=== PATIENT | male | born 1960 | race Caucasian/White ===

== ENCOUNTER → 2018-08-17 10:22 | Outpatient (CLI) | payer SELFPAY ==
--- NOTE | 2018-08-17 10:27 | RAD_ITS ---
STUDY: X-RAY - LUMBAR SPINE REASON FOR EXAM: Male, 58 years old. Back pain TECHNIQUE: 4 view(s) of the lumbar spine were obtained. COMPARISON: None FINDINGS: Normal lumbar lordosis. There is no substantial scoliosis. There is a normal alignment of the vertebrae. Normal vertebral bodies and endplates. There is narrowing of the L5-S1 disc space with mild sclerosis of the adjacent endplates. The soft tissue structures are unremarkable. RAD/L/S Spine Min 4 Views IMPRESSION: Narrowing of the L5-S1 disc space with sclerosis of the adjacent endplates. Electronically Signed: Haile Arthur MD at 22:40 EST , Service support ,
== END ==
PROVIDERS: Family Provider Family Medicine; PCP Family Medicine; Referring Provider Neurological Surgery; Visit Provider Neurological Surgery
DX: M54.9 Dorsalgia, unspecified (principal)
CPT/HCPCS: 72110

== ENCOUNTER → 2021-04-15 15:55 | Outpatient (CLI) | payer OTHER, SELFPAY ==
--- NOTE | 2021-04-15 16:08 | MRI_ITS ---
EXAM DESCRIPTION: MRI of the head CLINICAL HISTORY: 61 years Male, worst foster of life COMPARISON: None. TECHNIQUE: An MRI was performed utilizing axial diffusion and ADC map images followed by axial T2 and FLAIR and gradient echo images followed by sagittal and axial T1 weighted images. Normal and T2-weighted images were obtained through the head along with axial and coronal postcontrast T1-weighted images of the head FINDINGS: The diffusion weighted axial images and ADC map images of the head show no evidence of restricted diffusion. The karen, medulla and midbrain and cerebellum appear to be normal. The ventricles and sulci are normal in size and shape. The cerebral hemispheres show a nonspecific focus of increased signal in the white matter of the left frontal lobeThe basal ganglia appear to be normal. No enhancing masses or lesions are seen. The gradient echo axial images are normal. No evidence of a Chiari I malformation is identified. The V4 segments of the vertebral artery, the basilar artery, the posterior cerebral arteries, the cavernous and supraclinoid carotid arteries, and the M1 segments of the middle cerebral arteries are all normal The orbits including the optic nerves and optic chiasm appear normal. The pituitary and pituitary infundibulum appear to be normal. The inner and outer tables of the skull are normal The frontal, ethmoid, maxillary, and sphenoid sinuses are normal. The mastoid air cells are normal. MRI/Brain W/WO Contrast IMPRESSION: Normal MRI of the head. Electronically Signed: Phil Calderon DO at 11:21 EDT Tel , Service support ,
== END ==
PROVIDERS: PCP Family Medicine; Referring Provider Family Medicine; Visit Provider Family Medicine
DX: R51.9 Headache, unspecified (principal)
CPT/HCPCS: 70553; A9575

== ENCOUNTER → 2022-01-29 | Outpatient (CLI) | payer OTHER, SELFPAY ==
[2022-01-29 09:52] LABS: Absolute Lymphocyte Count 1.19 X10^3/uL (0.83-4.51); Absolute Neutrophil Count 2.4 X10^3/uL (2.0-7.7); Basophil# 0.02 X10^3/uL; Basophil% 0.5 % (0-1); Eosinophil# 0.24 X10^3/uL; Eosinophils% 5.4 % (0-5); Hematocrit 50.2 % (40-54); Hemoglobin 16.5 g/dL (13.0-16.5); Lymphocyte # 1.19 X10^3/ul (0.83-4.51); Lymphocyte % 26.9 % (19-41); Mean Corp Hgb Conc 32.9 g/dL (32-36); Mean Corpuscular Hgb 29.2 pg (27.0-32.0); Mean Corpuscular Volume 88.7 fL (80-94); Mean Platelet Vol. 9.7 fl (6.2-12.0); Monocyte# 0.52 X10^3/uL; Monocyte% 11.8 % (0-10); NRBC Flagged by Analyzer 0 % (0-5); Neutrophil # 2.44 X10^3/uL (2.7-7.7); Neutrophil % 55.2 % (47-70); Platelet Count 179 K/mm3 (150-450); RBC Distribution Width CV 12.5 % (11.6-14.6); RBC Distribution Width SD 41.1 fl (35.1-43.9); Red Blood Count 5.66 M/mm3 (4.6-6.2); White Blood Count 4.4 K/mm3 (4.4-11.0)
[2022-01-29 10:17] LABS: AST(SGOT) 17 U/L (15-37); Alanine Aminotransfer ALT/SGPT 25 U/L (16-61); Alkaline Phosphatase 68 U/L (45-117); Cholesterol 256 mg/dL (200); Globulin 3.2 g/dL (2.2-4.2); High Density Lipoprotein 53 mg/dL; Protein, Total 7.2 g/dL (6.4-8.2); Triglycerides 106 mg/dL; Very Low Density Lipoprotein 21 mg/dL (5-40)
[2022-01-29 10:20] LABS: ALB/GLOB Ratio 1.3 RATIO (0.9-2.4); AST(SGOT) 16 U/L (15-37); Alanine Aminotransfer ALT/SGPT 25 U/L (16-61); Albumin, Serum 4.1 g/dL (3.2-5.0); Alkaline Phosphatase 63 U/L (45-117); Anion Gap 5 (5-15); BUN 18 mg/dL (7-18); BUN/Creat Ratio 15.7 RATIO (10-20); Calcium,Total 9.4 mg/dL (8.5-10.1); Chloride 103 mmol/L (98-107); Creatinine, Serum 1.15 mg/dL (0.70-1.30); EST Glomerular Filtration Rate 69 mL/min (>60); Est Glom Filt Rate - Afr Amer 84 mL/min (>60); Globulin 3.1 g/dL (2.2-4.2); Glucose 94 mg/dL (74-106); Potassium 3.9 mmol/L (3.5-5.1); Protein, Total 7.2 g/dL (6.4-8.2); Sodium Level 136 mmol/L (136-145)
== END | disposition home or self-care (01) ==
LOC: LAB 09:09
PROVIDERS: Registered Nurse; PCP Family Medicine; Visit Provider Internal Medicine Cardiovascular Disease
DX: I25.42 Coronary artery dissection (principal); I25.119 Atherosclerotic heart disease of native coronary artery with unspecified angina pectoris; I25.2 Old myocardial infarction; E78.00 Pure hypercholesterolemia, unspecified
CPT/HCPCS: 36415; 80053; 80061; 80076; 85025

== ENCOUNTER → 2022-02-23 | Outpatient (CLI) | payer OTHER, SELFPAY ==
--- NOTE | 2022-02-23 06:47 | ECHOD_ITS ---
Reason For Study: CAD/ASHD Procedure This was a 2D Doppler, Color Flow transthoracic echocardiogram. The exam was of adequate technical quality. Exam performed in department. Left Ventricle Normal LV size. Left ventricular systolic function is normal. The estimated ejection fraction is 55 %. No evidence for diastolic dysfunction. No regional wall motion abnormalities noted. Right Ventricle Normal RV size. Normal systolic function. Atria Normal left atrium. Normal right atrium. No doppler evidence for ASD. Mitral Valve There is no mitral annular calcification. Mild diffuse mitral valve thickening. Mild (1+) mitral valve insufficiency. Tricuspid Valve Normal tricuspid valve. Mild tricuspid valve insufficiency. Right ventricular systolic pressure estimated to be 19 mmHg. Aortic Valve Trisinus/trileaflet aortic valve. Normal aortic valve. Trivial aortic valve insufficiency. Pulmonic Valve The pulmonic valve is not well visualized. Moderate (2+) pulmonic valve insufficiency. Great Vessels The ascending aorta is mildly dilated. Pericardium/Pleural No pericardial effusion. MMode/2D Measurements & Calculations LVIDd: 4.4 cm IVSd: 0.80 cm Ao root diam: 3.1 cm LVIDs: 3.1 cm LVPWd: 0.83 cm RVDd: 3.5 cm FS: 30.2 % LAV(MOD-bp): 26.3 ml LVAd ap4: 26.9 cm2 SV(MOD-sp4): 43.3 ml LAV(MOD-bp) Indexed: 14.0 ml/m2 LVLd ap4: 8.1 cm LAV(MOD-sp2): 29.5 ml EDV(MOD-sp4): 73.5 ml LAV(MOD-sp4): 23.1 ml EDV(sp4-el): 76.0 ml LVAs ap4: 15.2 cm2 LVLs ap4: 6.5 cm ESV(MOD-sp4): 30.3 ml ESV(sp4-el): 30.3 ml EF(MOD-sp4): 58.8 % EF(sp4-el): 60.1 % SV(sp4-el): 45.7 ml LA A4 area: 11.4 cm2 LA dimension(2D): 3.2 cm RA A4 area: 11.3 cm2 Time Measurements MV dec time: 0.15 sec Doppler Measurements & Calculations MV E max issac: 76.1 cm/sec Lat Peak E' Issac: 9.9 cm/sec Med Peak E' Issac: 7.1 cm/sec MV A max issac: 72.9 cm/sec E/E' lat: 7.7 E/E' med: 10.7 MV E/A: 1.0 Ao V2 max: 115.1 cm/sec LV V1 max: 99.7 cm/sec PA V2 max: 83.3 cm/sec Ao max P.3 mmHg LV V1 max P.0 mmHg PI end-d issac: 66.1 cm/sec TR max issac: 200.8 cm/sec TR max P.2 mmHg PI dec slope: 232.1 cm/sec2 ECHO/Echo Complete Interpretation Summary Left ventricular systolic function is normal. The estimated ejection fraction is 55 %. Mild diffuse mitral valve thickening. Mild (1+) mitral valve insufficiency. Mild tricuspid valve insufficiency. Trivial aortic valve insufficiency. Moderate (2+) pulmonic valve insufficiency. The ascending aorta is mildly dilated. Right ventricular systolic pressure estimated to be 19 mmHg. No evidence for diastolic dysfunction. Ordering Physician: Brandon Hidalgo Referring Physician: CARL GARSIA Performed By: Vivi Ledezma RDCS
--- NOTE | 2022-02-23 08:48 | STRESSREP ---
Stress Test Report Date: 02-23-2022 Procedure: Exercise tolerance test/imaging study Indications: Chest pain; CAD; status post non-ST segment elevation [place] Consent: Per the patient Procedure: The patient exercised on a Jimmy protocol for 9 minutes completing Stage III achieving a peak heart rate of 150 bpm (93% predicted maximal heart rate) with a peak blood pressure 166/90 mmHg and a peak MET capacity of 10 METs. The baseline ECG demonstrated normal sinus rhythm. The peak exercise ECG demonstrated no obvious ECG changes. There were no cardiac dysrhythmias pretest, during exercise, or recovery. The functional capacity was considered good. There was no complaint of chest discomfort during exercise or recovery. The examination was discontinued secondary to dyspnea. Impression: 1. Technically adequate (percent predicted maximal heart rate greater than 85%) exercise tolerance test 2. Peak exercise ECG with no obvious ECG changes 3. There were no cardiac dysrhythmias pretest, during exercise, or recovery 4. Nuclear images pending Myocardial perfusion imaging study: Technique: The patient was injected with 10.9 mCi of technetium 99m Cardiolite and subsequently rest SPECT Cardiolite nuclear imaging was obtained in the horizontal long, vertical long, and short axis views. The patient exercised on a Jimmy protocol for 9 minutes completing Stage III achieving a peak heart rate of 150 bpm (93% predicted maximal heart rate) with a peak blood pressure 166/90 mmHg and a peak MET capacity of 10 METs. The patient was injected with 32.8 mCi of technetium 99m Cardiolite and subsequently stress SPECT Cardiolite nuclear imaging was obtained in the horizontal long, vertical long, and short axis views. A gated Cardiolite study at peak stress was obtained. Interpretation: Rest and stress SPECT Cardiolite nuclear imaging status post realignment, normalization, and attenuation correction, demonstrates the appearance of body motion during image acquisition and otherwise relative uniform tracer uptake and myocardial perfusion appearing within normal limits. There are no myocardial perfusion deficits appreciated on the stress polar map images. There is end systolic thickening and brightening. The gated Cardiolite study demonstrates myocardial thickening and inward wall motion. The reported LVEF is 68%. Impression: 1. Rest and stress SPECT Cardiolite nuclear imaging demonstrate the appearance of body motion during image acquisition and otherwise relative uniform tracer uptake and myocardial perfusion appearing within normal limits. 2. The gated Cardiolite study reports an LVEF of 68%. This note was generated with [facility] software. It may contain incorrect words, spelling, and punctuation that were not noted in checking the note before signing.
== END | disposition home or self-care (01) ==
PROVIDERS: PCP Family Medicine; Referring Provider Internal Medicine Cardiovascular Disease; Visit Provider Internal Medicine Cardiovascular Disease
DX: I25.119 Atherosclerotic heart disease of native coronary artery with unspecified angina pectoris (principal); I25.2 Old myocardial infarction; E78.00 Pure hypercholesterolemia, unspecified
CPT/HCPCS: 78452; 93017; 93306; A9500; A4216

== ENCOUNTER → 2022-09-09 | Outpatient (CLI) | payer OTHER, SELFPAY ==
[2022-09-09 17:51] LABS: Absolute Lymphocyte Count 2.04 X10^3/uL (0.83-4.51); Basophil# 0.02 X10^3/uL; Basophil% 0.3 % (0-1); Eosinophil# 0.39 X10^3/uL; Eosinophils% 6.3 % (0-5); Hematocrit 48.5 % (40-54); Hemoglobin 15.9 g/dL (13.0-16.5); Lymphocyte # 2.04 X10^3/ul (0.83-4.51); Mean Corp Hgb Conc 32.8 g/dL (32-36); Mean Corpuscular Hgb 29.3 pg (27.0-32.0); Mean Corpuscular Volume 89.5 fL (80-94); Mean Platelet Vol. 10.1 fl (6.2-12.0); Monocyte# 0.75 X10^3/uL; Monocyte% 12.1 % (0-10); NRBC Flagged by Analyzer 0 % (0-5); Neutrophil # 2.98 X10^3/uL (2.7-7.7); Neutrophil % 48.1 % (47-70); Platelet Count 192 K/mm3 (150-450); RBC Distribution Width CV 12.3 % (11.6-14.6); RBC Distribution Width SD 40.6 fl (35.1-43.9); Red Blood Count 5.42 M/mm3 (4.6-6.2); White Blood Count 6.2 K/mm3 (4.4-11.0)
[2022-09-09 18:40] LABS: ALB/GLOB Ratio 1.3 RATIO (0.9-2.4); AST(SGOT) 26 U/L (15-37); Alanine Aminotransfer ALT/SGPT 42 U/L (16-61); Albumin, Serum 3.9 g/dL (3.2-5.0); Alkaline Phosphatase 83 U/L (45-117); Anion Gap 4 (5-15); BUN 23 mg/dL (7-18); BUN/Creat Ratio 20.2 RATIO (10-20); Calcium,Total 8.9 mg/dL (8.5-10.1); Chloride 108 mmol/L (98-107); Cholesterol 237 mg/dL (200); Creatinine, Serum 1.14 mg/dL (0.70-1.30); EST Glomerular Filtration Rate 70 mL/min (>60); Est Glom Filt Rate - Afr Amer 84 mL/min (>60); Glucose 84 mg/dL (74-106); High Density Lipoprotein 48 mg/dL; Protein, Total 6.9 g/dL (6.4-8.2); Sodium Level 141 mmol/L (136-145); Triglycerides 185 mg/dL; Very Low Density Lipoprotein 37 mg/dL (5-40)
== END | disposition home or self-care (01) ==
LOC: MFPLAB 16:50
PROVIDERS: PCP Family Medicine; Referring Provider Family Medicine; Visit Provider Family Medicine
DX: I25.10 Atherosclerotic heart disease of native coronary artery without angina pectoris (principal)
CPT/HCPCS: 36415; 80053; 80061; 85025

== ENCOUNTER 2022-12-03 08:30 | Day surgery (SDC) | payer OTHER, SELFPAY ==
[2022-12-03] VITALS (7 sets, daily range): BP systolic 102–144; BP diastolic 70–84; PULSE 61–74; RESP 12–16; TEMP 36.2–37.1; O2SAT 95–98; BMI 25.4
[2022-12-03] MEDS: Lactated Ringers 1,000 ML 15 ML IV (08:55)
--- NOTE | 2022-12-03 09:06 | PCM.HP.BLA ---
History and Physical Date of Admission: 12/03/22 Intake Vital Signs ? 11/17/2308:07 Height 5 ft 8 in Weight: 175 lb BMI 26.6 BP 120/81 H Blood Pressure Location Rt brachial Position Sitting Respiration 17 Pulse 84 Pulse Source Monitor Temp 97.3 F L Temp Source Temporal Pulse Oximetry (%) 98 Oxygen Delivery Method room air Intake Visit Reasons:?Dyspepsia Chief Complaint: dyspepsia Is patient in pain?: No Allergies No Known Allergies Allergy (Verified 11/17/22 09:08) Medications aspirin 81 mg tablet,delayed release (Adult Low Dose Aspirin) 81 mg PO DAILY 01/14/22 [History Confirmed 11/17/22] PFSH Medical History?(Updated 11/17/22 @ 13:[address] Alberto Segal MD) Atherosclerotic heart disease of [place] coronary artery without angina pectoris Chest pain due to coronary artery disease Dilatation of aorta History of non-ST elevation myocardial infarction (NSTEMI) Pure hypercholesterolemia Surgical History? History of left heart catheterization (LHC) (~12/03/13) Social History?(Updated 11/17/22 @ 09:06 by Evangelina Griffin) Smoking Status:? Never smoker alcohol intake:? never substance use type:? does not use caffeine:? No HPI HPI HPI: Patient is a 62-year-old male here with GERD.? He reports that he has been having reflux for a long time and started having more pain.? He was started on a PPI and that worked really well until he stopped his PPI and now the reflux and pain are back but to a lesser degree.? He denies any blood in his stool or abdominal pain and has never had a scope. ROS General General: No weight change, appetite, fatigue, colon cancer, breast cancer or weakness HEENT HEENT: No difficulty swallowing, eye injury, eye surgery, swollen glands or hoarseness Endo Endocrine: No thyroid disease, diabetes mellitus, thyroid cancer, Hair loss, heat intolerance or cold intolerance Skin Skin: No rash or changing moles Musc Musculoskeletal: No back problems, arthritis, rheumatoid arthritis, gout or joint pain Cardio Cardiovascular: Yes heart disease; No murmur, pacemaker, atrial fibrillation, high blood pressure, heart attack, heart stent, palpitations, shortness of breat with exertion or chest pain Psych Psychiatric: No depression, anxiety or hearing voices Resp Respiratory: No shortness of breath, No sleep apnea, No cough, No COPD, No asthma, No emphysema and No wheezing Gastro Gastrointestinal: Yes abdominal pain, No nausea or vomiting, No diarrhea, No constipation, No blood in stool, Yes acid reflux, No hemorrhoids, No ulcers, No gallbladder problem and No black,tarry stools Indra Hematologic: No blood thinners, No blood disorders, No bleeding, No anemia and No blood clots Neuro Neurologic: No system reviewed and no additional complaints, except as documented, No as per HPI, No abnormal gait, No abnormal hearing, No abnormal movements, No abnormal speech, No behavioral changes, No burning sensations, No confusion, No convulsions, No disequilibrium, No dizziness, No localized weakness, No frequent falls, No headache(s), No lack of coordination, No loss of vision, No memory loss, No numbness, No other visual disturbances, No radicular pain, No restless legs, No sensory deficit, No syncope, No tingling, No tremor(s), No weakness and No other Exam Const General: cooperative Orientation: alert and oriented x3 HENMT Head: normal to inspection Neck Neck: normal visual inspection and full ROM Chest Chest palpation & inspection: normal inspection of the chest Resp Effort & Inspection: normal respiratory effort Auscultation: clear to auscultation bilaterally Cardio Rate: regular rate Rhythm: regular rhythm GI Inspection: non-distended Palpation: soft and nontender Skin General: no rashes or lesions noted Neuro General: patient alert and patient oriented x3 Extrem General: full ROM Psych Appearance: grossly normal Mental Status: mental status grossly normal Assessment and Plan Assessment and Plan (1) GERD (gastroesophageal reflux disease): ?Status:?Acute ?Plan: Patient has been having GERD which did respond to PPI but then he stopped his PPI came back.? I will perform an EGD for him to check for esophagitis and to biopsy for H. pylori.? If the patient would like to stop medications then he would be a candidate for Duane fundoplication. I explained endoscopy in detail to the patient.? I explained the risks including but not limited to stroke or heart attack with anesthesia, perforation of the GI tract, bleeding, infection.? I explained that any of these could necessitate further emergency surgery.? The patient understands and all questions were answered sufficiently.? The patient wishes to proceed with procedure. Alberto Segal MD Pager: [facility] [address] [place] [address] [address] [place] [address] Office: I have examined the patient and the H&P has been reviewed. There are no clinical changes since date of exam.
--- NOTE | 2022-12-03 09:30 | EGD_PTH ---
PATIENT: JANETT STEVE LOC: EN U#:[id number] AGE/SX: 62/M ROOM: RE12/03/[address]: Dr. Alberto Segal MD : 1960 BED: DIS: 12/03/2022 SPEC #: [id number] RECD: 12/03/22 10:04 STATUS: HERMILA MORALES #: [id number] AMARI: 12/03/22 09:[address]: Alberto Segal DEPT: SURGICAL PATHOLOGY RECD BY: Kassandra Russell ENTERED: 12/03/22 11:42 SP TYPE: EGD BIOPSY OT DR: Dr. Phil Camejo MD Tissues: Gastric mucous membrane Procedures: Surgery Specimen Level IV HEADER OPERATION: EGD ([facility] [place] biopsy PRE-OP DIAGNOSIS: GERD TISSUE SUBMITTED: Antrum biopsy for H. pylori and path MICROSCOPIC DIAGNOSIS Gastric antrum, biopsy: Mild chronic gastritis. See comment. AM:ji 12/06/2022 COMMENT The results of immunohistochemistry for Helicobacter pylori will be reported separately ([id number]). MICROSCOPIC DESCRIPTION Slides are reviewed. GROSS DESCRIPTION Received in fixative is one container labeled with the patient's name and designated antrum biopsy. The specimen consists of one irregular fragment of light garcia soft tissue that measures 0.3 x 0.2 x 0.1 cm. The specimen is totally submitted in one cassette. / SJ:ji 12/03/2022 TC:3 CPT: 09178
--- NOTE | 2022-12-03 09:30 | IMM_PTH ---
PATIENT: JANETT STEVE LOC: EN U#:[id number] AGE/SX: 62/M ROOM: RE12/03/[address]: Dr. Alberto Segal MD : 1960 BED: DIS: 12/03/2022 SPEC #: [id number] RECD: 12/03/22 13:25 STATUS: HERMILA RE[place] #: [id number] AMARI: 12/03/22 09:[address]: Alberto Segal DEPT: IMMUNOHISTOCHEMISTRY RECD BY: Swetha Hurley ENTERED: 12/03/22 13:25 SP TYPE: IMMUNO OTHR DR: Dr. Phil Camejo MD Tissues: Stomach, NOS Procedures: H Pylori (initial) PHYSICIAN & INSTITUTION [place] [id number] SPECIMEN INFORMATION: Tissue Source: Antrum biopsy Clinical Info: GERD Specimen Number: [id number] CPT code: 64327 METHODOLOGY: Deparaffinized sections of prefer/formalin-fixed tissue or PAP/DQ stained slides are incubated with monoclonal/polyclonal antibodies/oligonucleotide probes. Localization is made via biotin free immunoperoxidase method. Appropriate controls are performed and reacted as expected. Results on target cell population are indicated in the following table: RESULTS: ANTIBODY / CLONE RESULT H Pylori (polyclonal) negative These tests were developed and their performance characteristics determined by [facility]. They may not have been cleared or approved by the U.S. Food and Drug Administration. The FDA has determined that such clearance or approval is not necessary. The above immunohistochemical/dualISH markers are ordered and reviewed by the Pathologist. INTERPRETATION: Antrum, biopsy: Negative for Helicobacter pylori organisms. AM:ji 12/07/2022
--- NOTE | 2022-12-03 09:56 | OP.EGD_ITS ---
Patient Name: Brent Nguyen Procedure Date: 12/03/2022 9:44 AM Date of : 1960 Age: 62 Procedure: Upper GI endoscopy Indications: Heartburn, Gastro-esophageal reflux disease Providers: Alberto Segal MD Referring MD: Alberto Segal MD Medicines: Monitored Anesthesia Care Patient Profile: This is a 62 year old male. Refer to note in patient chart for documentation of history and physical. Complications: No immediate complications. Estimated blood loss: Minimal. Procedure: Pre-Anesthesia Assessment: - Prior to the procedure, a History and Physical was performed, and patient medications and allergies were reviewed. The patient's tolerance of previous anesthesia was also reviewed. The risks and benefits of the procedure and the sedation options and risks were discussed with the patient. All questions were answered, and informed consent was obtained. Prior Anticoagulants: The patient has taken no previous anticoagulant or antiplatelet agents. After reviewing the risks and benefits, the patient was deemed in satisfactory condition to undergo the procedure. After obtaining informed consent, the endoscope was passed under direct vision. Throughout the procedure, the patient's blood pressure, pulse, and oxygen saturations were monitored continuously. The gastroscope was introduced through the mouth, and advanced to the third part of duodenum. The upper GI endoscopy was accomplished without difficulty. The patient tolerated the procedure well. Scope In: 9:49:54 AM Scope Out: 9:52:25 AM Total Procedure Duration Time 0 hours 2 minutes 31 seconds Findings: The esophagus was normal. The stomach was normal. The examined duodenum was normal. Biopsies were taken with a cold forceps in the gastric antrum for Helicobacter pylori testing. Impression: - Normal esophagus. - Normal stomach. - Normal examined duodenum. - Biopsies were taken with a cold forceps for Helicobacter pylori testing. Recommendation: - Await pathology results. - Discharge patient to home. - Resume previous diet. - Continue present medications. Procedure Code(s): --- Professional --- 84237, Esophagogastroduodenoscopy, flexible, transoral; with biopsy, single or multiple Diagnosis Code(s): --- Professional --- R12, Heartburn K21.9, Gastro-esophageal reflux disease without esophagitis CPT copyright 2017 [employer]. All rights reserved. The codes documented in this report are preliminary and upon microarray specialist review may be revised to meet current compliance requirements. Alberto Segal MD 12/03/2022 9:56:01 AM This report has been signed electronically. Number of Addenda: 0 Note Initiated On: 12/03/2022 9:44 AM
--- NOTE | 2022-12-03 09:57 | OP.CCLET_ITS ---
12/03/2022 Phil Camejo [address] [place] [address] Re : Upper GI endoscopy procedure for Brent Patrick Dear Dr. Camejo This procedure was performed on Saturday, December 03, 2022. My impressions and recommendations are as follows: Impressions : - Normal esophagus. - Normal stomach. - Normal examined duodenum. - Biopsies were taken with a cold forceps for Helicobacter pylori testing. Recommendations : - Await pathology results. - Discharge patient to home. - Resume previous diet. - Continue present medications. My findings are described in the full procedure note, which is enclosed. If I can be of further assistance, please feel free to contact me at Doctor phone number(s): , Work: . Sincerely, Alberto Segal MD 12/03/2022 9:56:01 AM This report has been signed electronically.
== END 2022-12-03 10:56 | disposition home or self-care (01) ==
LOC: EN 08:31 → AC 08:36
PROVIDERS: PCP Family Medicine; Referring Provider Family Medicine; Visit Provider Surgery
PROC: 0DJ08ZZ Inspection of Upper Intestinal Tract, Via Natural or Artificial Opening Endoscopic (ICD-10-PCS; CPT 43235; principal; 2022-12-03 09:25)
DX: K21.9 Gastro-esophageal reflux disease without esophagitis (principal); I25.10 Atherosclerotic heart disease of native coronary artery without angina pectoris; I25.2 Old myocardial infarction; E78.00 Pure hypercholesterolemia, unspecified; Z79.82 Long term (current) use of aspirin; R12 Heartburn
CPT/HCPCS: 43239; 88305; 88342; J7120; J2405

== ENCOUNTER → 2023-02-15 | Outpatient (CLI) | payer OTHER, SELFPAY ==
[2023-02-15 15:08] LABS: Absolute Lymphocyte Count 1.31 X10^3/uL (0.83-4.51); Basophil# 0.02 X10^3/uL; Basophil% 0.5 % (0-1); Eosinophil# 0.25 X10^3/uL; Hematocrit 49.8 % (40-54); Hemoglobin 16.8 g/dL (13.0-16.5); Lymphocyte # 1.31 X10^3/ul (0.83-4.51); Lymphocyte % 31.6 % (19-41); Mean Corp Hgb Conc 33.7 g/dL (32-36); Mean Corpuscular Hgb 29.9 pg (27.0-32.0); Mean Corpuscular Volume 88.6 fL (80-94); Mean Platelet Vol. 10.3 fl (6.2-12.0); Monocyte# 0.53 X10^3/uL; Monocyte% 12.8 % (0-10); NRBC Flagged by Analyzer 0 % (0-5); Neutrophil # 2.04 X10^3/uL (2.7-7.7); Neutrophil % 49.1 % (47-70); Platelet Count 171 K/mm3 (150-450); RBC Distribution Width CV 12.6 % (11.6-14.6); RBC Distribution Width SD 41.1 fl (35.1-43.9); Red Blood Count 5.62 M/mm3 (4.6-6.2); White Blood Count 4.2 K/mm3 (4.4-11.0)
[2023-02-15 15:32] LABS: ALB/GLOB Ratio 1.2 RATIO (0.9-2.4); AST(SGOT) 25 U/L (15-37); Alanine Aminotransfer ALT/SGPT 22 U/L (16-61); Albumin, Serum 3.9 g/dL (3.2-5.0); Alkaline Phosphatase 72 U/L (45-117); Anion Gap 2 (5-15); BUN 19 mg/dL (7-18); BUN/Creat Ratio 16.5 RATIO (10-20); Chloride 109 mmol/L (98-107); Cholesterol 229 mg/dL (200); Creatinine, Serum 1.15 mg/dL (0.70-1.30); EST Glomerular Filtration Rate 69 mL/min (>60); Est Glom Filt Rate - Afr Amer 83 mL/min (>60); Globulin 3.2 g/dL (2.2-4.2); Glucose 84 mg/dL (74-106); High Density Lipoprotein 53 mg/dL; Protein, Total 7.1 g/dL (6.4-8.2); Sodium Level 137 mmol/L (136-145); Triglycerides 70 mg/dL; Very Low Density Lipoprotein 14 mg/dL (5-40)
== END | disposition home or self-care (01) ==
LOC: MTLAB 12:54
PROVIDERS: PCP Family Medicine; Referring Provider Family Medicine; Visit Provider Family Medicine
DX: I25.10 Atherosclerotic heart disease of native coronary artery without angina pectoris (principal); R31.29 Other microscopic hematuria
CPT/HCPCS: 36415; 80053; 80061; 85025

== ENCOUNTER → 2023-02-18 | Outpatient (CLI) | payer OTHER, SELFPAY ==
[2023-02-18 13:15] LABS: AST(SGOT) 14 U/L (15-37); Alanine Aminotransfer ALT/SGPT 22 U/L (16-61); Albumin, Serum 3.8 g/dL (3.2-5.0); Alkaline Phosphatase 71 U/L (45-117); Bilirubin, Direct 0.32 mg/dL (0.00-0.30); Globulin 3.3 g/dL (2.2-4.2); Protein, Total 7.1 g/dL (6.4-8.2)
== END | disposition home or self-care (01) ==
PROVIDERS: PCP Family Medicine; Referring Provider Family Medicine; Visit Provider Family Medicine
DX: E80.6 Other disorders of bilirubin metabolism (principal)
CPT/HCPCS: 36415; 80076

== ENCOUNTER 2023-08-01 11:12 | Emergency (ER) | payer OTHER, SELFPAY ==
[2023-08-01 11:13] VITALS: BP 171/117; PULSE 93; RESP 16; TEMP 36.2; O2SAT 99; BMI 26.6
[2023-08-01 11:25] VITALS: BP 167/107; PULSE 86; RESP 20; O2SAT 98
--- NOTE | 2023-08-01 11:27 | EKG12_ITS ---
Test Reason : CP/HTN Blood Pressure : / mmHG Vent. Rate : 085 BPM Atrial Rate : 085 BPM P-R Int : 164 ms QRS Dur : 084 ms QT Int : 368 ms P-R-T Axes : 045 -33 036 degrees QTc Int : 437 ms Normal sinus rhythm Left axis deviation Abnormal ECG Confirmed by FARA CASTELLANO, REN ([id number]), senior editor TY MARTINEZ ([id number]) on 08/03/2023 12:44:12 PM Referred By: KARLI/YOBANY Confirmed By:REN CHAUDHARI MD
--- NOTE | 2023-08-01 11:40 | RAD_ITS ---
STUDY: X-RAY CHEST REASON FOR EXAM: Male, 63 years old. Chest pain TECHNIQUE: Frontal view of the chest COMPARISON: 12/03/2013 FINDINGS: The lungs are clear. There are no pleural effusions. There is no pneumothorax. The heart is normal in size. The visualized osseous structures are within normal limits. RAD/Chest 1 View (Portable) IMPRESSION: No acute thoracic pathology. Electronically Signed: Rodrigue Han MD at 12:00 EST ,
[2023-08-01 11:44] LABS: Absolute Lymphocyte Count 1.12 X10^3/uL (0.83-4.51); Absolute Neutrophil Count 4.8 X10^3/uL (2.0-7.7); Basophil# 0.03 X10^3/uL; Basophil% 0.4 % (0-1); Eosinophil# 0.23 X10^3/uL; Eosinophils% 3.4 % (0-5); Hematocrit 49.8 % (40-54); Hemoglobin 17.1 g/dL (13.0-16.5); Lymphocyte # 1.12 X10^3/ul (0.83-4.51); Lymphocyte % 16.6 % (19-41); Mean Corp Hgb Conc 34.3 g/dL (32-36); Mean Corpuscular Hgb 30.3 pg (27.0-32.0); Mean Corpuscular Volume 88.3 fL (80-94); Mean Platelet Vol. 9.5 fl (6.2-12.0); Monocyte# 0.54 X10^3/uL; NRBC Flagged by Analyzer 0 % (0-5); Neutrophil # 4.81 X10^3/uL (2.7-7.7); Neutrophil % 71.5 % (47-70); Platelet Count 175 K/mm3 (150-450); RBC Distribution Width CV 12.4 % (11.6-14.6); RBC Distribution Width SD 40.5 fl (35.1-43.9); Red Blood Count 5.64 M/mm3 (4.6-6.2); White Blood Count 6.7 K/mm3 (4.4-11.0)
[2023-08-01 12:00] LABS: Anion Gap 7 (5-15); BUN 13 mg/dL (7-18); BUN/Creat Ratio 11.1 RATIO (10-20); Calcium,Total 9.2 mg/dL (8.5-10.1); Chloride 103 mmol/L (98-107); Creatinine, Serum 1.17 mg/dL (0.70-1.30); EST Glomerular Filtration Rate 67 mL/min (>60); Est Glom Filt Rate - Afr Amer 81 mL/min (>60); Estimated Creatinine Clearance 64.15 ml/min; Glucose 108 mg/dL (74-106); Potassium 3.6 mmol/L (3.5-5.1); Sodium Level 137 mmol/L (136-145); Troponin-I HS (w/2H Reflex) 5 pg/mL (3.0-78.0)
--- NOTE | 2023-08-01 12:09 | EX.ED.DYSGE1 ---
HPI History of Present Illness Chief Complaint: Hypertension Narrative Narrative: 63-year-old male with history of GERD, CAD, hyperlipidemia, with high blood pressure. Patient states he does not have a history of high blood pressure. Patient states that he noted it was 180/120 today. He states he repeatedly kept checking it and it continually was high. He states he felt flushed. He states he takes no medications at home. He states that his primary care recommended to be on a statin due to his hyperlipidemia although he does not like the way it makes him feel. Patient states that although he is told he has CAD he states he does not have any blockages. He has a history of NSTEMI, but states he does not take a daily aspirin. He is not on a beta-amelia. He used to see Dr. Hidalog and still sees the heart group and is established with a new physician. He is not sure of the name. Patient states that Dr. Bowling is currently his primary care physician, his other doctor left the group. [facility] Medical History Atherosclerotic heart disease of [place] coronary artery without angina pectoris Back pain Cardiology follow-up encounter Chest pain due to coronary artery disease Dilatation of aorta Gastric reflux History of echocardiogram History of non-ST elevation myocardial infarction (NSTEMI) History of stress test Non-smoker Pure hypercholesterolemia Home Medications ramipril 5 mg capsule 5 mg PO DAILY #30 caps 08/01/23 [Rx Last Taken Unknown] Allergy/AdvReac Type Severity Reaction Status Date / Time No Known Allergies Allergy Verified 08/01/23 11:12 Surgical History History of left heart catheterization (LHC) (~12/03/13) History of root canal procedure Hx of colonoscopy Hx of vasectomy Social History Smoking Status: Never smoker alcohol intake: never substance use type: does not use caffeine: No ROS ROS ED Constitutional Constitutional ED: Denies chills, fever(s) or sweats Eyes Eyes: Denies blurry vision or change in vision ENT ENT ED: Denies ear pain or sore throat Cardiovascular Cardiovascular: Reports palpitations; Denies chest pain or racing heartbeat Respiratory/Chest Respiratory/Chest: Reports cough; Denies dyspnea or sputum Gastrointestinal Gastrointestinal: Denies abdominal pain, constipation, diarrhea, nausea or vomiting Genitourinary Genitourinary ED: Denies dysuria, hematuria or urinary frequency Musculoskeletal Musculoskeletal: Denies arthralgias, myalgias or neck pain Integumentary Denies abscess, Abrasions or rash Neurologic Neurologic: Denies headache(s), paresthesias or weakness Psychiatric Psychiatric: Denies anxiety, depression, suicidal ideation or suicidal thoughts Endocrine Endocrinology: Denies polydipsia or polyuria EXAM Physical Exam Const Vital Signs: 08/01/23 11:13 08/01/23 11:25 08/01/23 11:25 Temperature 97.2 F L Temperature Source Temporal Pulse Rate 93 86 Respiratory Rate 16 20 H Respiratory Effort Normal Non-Labored Respiratory Pattern Normal Blood Pressure 171/117 H 167/107 H Blood Pressure Mean 135 127 Pulse Ox 99 98 Oxygen Delivery Method Room Air Room Air 08/01/23 11:36 08/01/23 12:14 08/01/23 14:00 Temperature Temperature Source Pulse Rate 78 80 Respiratory Rate 16 Respiratory Effort Respiratory Pattern Blood Pressure 153/94 H 150/95 H Blood Pressure Mean 113 113 Pulse Ox 98 Oxygen Delivery Method Room Air Room Air Positive well nourished General Appearance ED: NAD; Negative for pallor HEENT Reports moist mucous membranes Eyes PERRL and EOMs intact bilaterally Neck no lymphadenopathy Chest Wall inspection of chest normal Resp normal respiratory effort and clear to auscultation bilaterally Auscultation: Negative for rales, rhonchi or wheezes Cardio regular rate and regular rhythm GI normal to inspection, nondistended, normoactive bowel sounds Neuro oriented x3 and CN's II-XII intact bilaterally Sensorium / Orientation: alert Psych mental status grossly normal Skin no rashes or lesions noted and no wounds General Skin Exam: Negative for jaundice or pallor MDM MDM MDM Narrative Medical decision making narrative: With history of CAD, hyperlipidemia, NSTEMI. Patient presenting with elevated blood pressures and chest flushing. He denies pressure. Or sharp pleuritic pain. Differential includes but is not limited to ACS, PE, aortic dissection, pneumonia, pneumothorax, muscle strain, costochondritis. Unlikely to be PE as the patient is PERC negative is not having sharp pleuritic pain. Unlikely to be aortic dissection is not having ripping or tearing pain and describes a flushing.. Equal symmetric breath sounds and chest wall rise making less likely has pneumothorax. We will obtain a CBC and BMP to assess white blood cell count, hemoglobin, platelets, renal function, electrolytes. High-sensitivity troponin and EKG will also be obtained. Chest x-ray to rule out pneumonia. Patient's blood pressure initially 171/117 however when I am in the room his blood pressure was 152/93. I do not believe he needs blood pressure treatment currently. We will continue to monitor. Pressure still stable at 153/94. CBC shows a normal blood cell count of 6.7. Hemoglobin count slightly concentrated 17.1. Platelets 175. Renal function electrolytes within normal limits. EKG on my interpretation shows a sinus rhythm with a ventricular rate of 85 bpm without sign of ischemic change or ectopy on my interpretation. Chest x-ray shows no acute process. High-sensitivity troponin and delta troponin are both 5. His work-up is ultimately normal and his blood pressure is stabilized although it slightly elevated I will speak with Dr. Jenkins who is on-call for Dr. Camejo to see if they want the patient started on antihypertensive. Dr. Jenkins recommended putting him on 5 mg of ramipril. First dose given in the ED. He is given a 30-day supply. They stated they will follow-up with office this week or next week. Patient amenable to this plan. He is discharged in stable condition Impression: 1. Atypical chest pain 2. Hypertension Lab Data Attestation: I reviewed the patient's lab results. Labs: Laboratory Results - last 24 hr 08/01/23 08/01/23 11:35 13:32 WBC 6.7 RBC 5.64 Hgb 17.1 H Hct 49.8 MCV 88.3 MCH 30.3 MCHC 34.3 RDW Std Deviation 40.5 RDW Coeff of Eveline 12.4 Plt Count 175 MPV 9.5 Immature Gran % (Auto) 0.100 Neut % (Auto) 71.5 H Lymph % (Auto) 16.6 L [place] % (Auto) 8.0 Eos % (Auto) 3.4 Baso % (Auto) 0.4 Absolute Neuts (auto) 4.8 Absolute Lymphs (auto) 1.12 Nucleated RBC % 0 Sodium 137 Potassium 3.6 Chloride 103 Carbon Dioxide 27.0 Anion Gap 7 BUN 13 Creatinine 1.17 Estim Creat Clear Calc 64.15 Est GFR (MDRD) Af Amer 81 Est GFR (MDRD) Non-Af 67 BUN/Creatinine Ratio 11.1 Glucose 108 H Calcium 9.2 Troponin I High Sens 5 5 Radiography Diagnostic Testing: Clinical Impression(s) from Imaging Studies Chest X-Ray 08/01/23 11:40 IMPRESSION: No acute thoracic pathology. Electronically Signed: Rodrigue Han MD at 12:00 EST , Discharge Plan Triage Chief Complaint: Hypertension ED Provider: Fidel Cuevas Dx/Rx/DC Orders Instructions: ED Chest Pain, Noncardiac, ED Hypertension New Begin Treatment Prescriptions: New ramipril 5 mg capsule 5 mg PO DAILY Qty: 30 0RF Primary Care Provider: Phil Camejo Referrals: Phil Camejo MD [Primary Care Provider] - Disposition Disposition: Home, Self Care
[2023-08-01 12:14] VITALS: BP 153/94; PULSE 78
[2023-08-01 13:39] LABS: Reflex Troponin-HS? (from REC) Y
[2023-08-01 13:58] LABS: Troponin-I HS 5 pg/mL (3.0-78.0)
[2023-08-01 14:00] VITALS: BP 150/95; PULSE 80; RESP 16; O2SAT 98
[2023-08-01] MEDS: Ramipril 5 MG Capsule PO (14:58)
[2023-08-01 15:00] VITALS: BP 146/89; PULSE 68; O2SAT 97
== END 2023-08-01 15:05 | disposition home or self-care (01) ==
PROVIDERS: Emergency Provider Student in an Organized Health Care Education/Training Program; PCP Family Medicine; Visit Provider Student in an Organized Health Care Education/Training Program
DX: R07.89 Other chest pain (principal); E78.00 Pure hypercholesterolemia, unspecified; I10 Essential (primary) hypertension; I25.10 Atherosclerotic heart disease of native coronary artery without angina pectoris; I25.2 Old myocardial infarction; I5A Non-ischemic myocardial injury (non-traumatic); Z98.52 Vasectomy status
CPT/HCPCS: 71045; 80048; 84484; 85025; 93005; 99284; A4216

== ENCOUNTER 2023-08-26 20:40 | Emergency (ER) | payer OTHER, SELFPAY ==
[2023-08-26 20:41] VITALS: BP 111/81; PULSE 102; RESP 14; TEMP 35.7; O2SAT 96; BMI 25.8
--- NOTE | 2023-08-26 20:57 | EX.ED.DYSGE1 ---
HPI History of Present Illness Chief Complaint: Poisoning Detail of Chief Complaint: Cough, headache, sore throat Narrative Narrative: Patient presents to the emergency department with complaint of headache and cough and sore throat that started about 24 hours ago. 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 Patient concerned that he has poisoning related to that. He had subjective fever at home. Denies sick contacts. He went to urgent care and he felt like they just sent him home. They are concerned about carbon monoxide poisoning because they read that the methylene chloride is converted to CO2 in the bloodstream. [facility] Medical History Atherosclerotic heart disease of [place] coronary artery without angina pectoris Back pain Cardiology follow-up encounter Chest pain due to coronary artery disease Dilatation of aorta Gastric reflux History of echocardiogram History of non-ST elevation myocardial infarction (NSTEMI) History of stress test Non-smoker Pure hypercholesterolemia Home Medications ramipril 5 mg capsule 5 mg PO DAILY #30 caps 08/01/23 [Rx Last Taken Unknown] benzonatate 200 mg capsule 200 mg PO 08/26/23 [History Last Taken Unknown] Allergy/AdvReac Type Severity Reaction Status Date / Time No Known Allergies Allergy Verified 08/26/23 20:40 Surgical History History of left heart catheterization (LHC) (~12/03/13) History of root canal procedure Hx of colonoscopy Hx of vasectomy Social History Smoking Status: Never smoker alcohol intake: never substance use type: does not use caffeine: No ROS ROS ED Review of Systems ROS Unobtainable: other Constitutional Constitutional ED: Reports lethargy; Denies chills, fever(s), sweats or weight loss Eyes Eyes: Denies blurry vision, change in vision or diplopia ENT ENT ED: Reports sore throat; Denies rhinorrhea Cardiovascular Cardiovascular: Denies chest pain, orthopnea or racing heartbeat Respiratory/Chest Respiratory/Chest: Reports cough; Denies dyspnea, dyspnea on exertion, orthopnea or sputum Gastrointestinal Gastrointestinal: Denies abdominal pain, diarrhea, nausea or vomiting Genitourinary Genitourinary ED: Denies dysuria, hematuria or urinary frequency Musculoskeletal Musculoskeletal: Denies arthralgias, back pain, myalgias or neck pain Integumentary Denies abscess, Abrasions or rash Neurologic Neurologic: Reports headache(s); Denies weakness Psychiatric Psychiatric: Denies anxiety, depression or suicidal thoughts Endocrine Endocrinology: Denies polydipsia, polyphagia or polyuria Hematologic/Lymphatic Hematologic/Lymphatic: Denies easy bleeding, easy bruising or lymphadenopathy Allergic/Immunologic Allergic/Immunologic ED: Denies mouth swelling, tongue swelling or urticaria EXAM Physical Exam Const Vital Signs: 08/26/23 20:41 08/26/23 20:55 08/26/23 20:58 Temperature 96.3 F L Temperature Source Temporal Pulse Rate 102 H Respiratory Rate 14 Respiratory Effort Normal Normal Respiratory Pattern Normal Normal Blood Pressure 111/81 H Blood Pressure Mean 91 Pulse Ox 96 Oxygen Delivery Method Room Air Room Air 08/26/23 21:57 Temperature Temperature Source Pulse Rate 61 Respiratory Rate 15 Respiratory Effort Respiratory Pattern Blood Pressure 128/77 H Blood Pressure Mean 94 Pulse Ox 98 Oxygen Delivery Method Positive well nourished and well developed General Appearance ED: well developed and NAD HEENT Reports TM's clear and moist mucous membranes normocephalic and atraumatic; Negative for trauma or tenderness Tympanic Membrane ED: Yes TM's clear Eyes PERRL and EOMs intact bilaterally General Eye ED: Negative for pale conjunctiva or scleral icterus Neck no lymphadenopathy, supple and no JVD General: Negative for tenderness Chest Wall inspection of chest normal and palpation of chest normal Chest: Negative for tenderness Resp normal respiratory effort and clear to auscultation bilaterally Effort and Inspection: Negative for respiratory distress or pain with movement Auscultation: Negative for rhonchi, wheezes or diminished lung sounds Cardio regular rate, regular rhythm, S1 normal heart sound, S2 normal heart sound and no murmurs Peripheral Pulses: pulses 2+ throughout GI normal to inspection, nondistended, normoactive bowel sounds, soft to palpation, non-tender, non-distended and no masses Back/Spine no CVA tenderness and no thoracic nor lumbar tenderness Extremity normal to inspection General Extremety ED: Negative for edema General Extremity: Negative for edema Neuro oriented x3, CN's II-XII intact bilaterally, no sensory deficits noted and gait normal Sensorium / Orientation: awake, alert, oriented to person, oriented to place and oriented to time Motor Exam: strength 5/5 throughout and strength abnormal Psych mental status grossly normal Skin no rashes or lesions noted and no wounds MDM MDM MDM Narrative Medical decision making narrative: Patient presents to the emergency department with upper respiratory symptoms that he thinks may be related to methylene chloride poisoning. I did discuss case with poison control and they do state that he could have elevation in his CO2 level related to that chemical and recommended obtaining a carboxyhemoglobin which was performed. His carboxyhemoglobin was less than 1. Patient also had COVID in influenza testing and was positive for COVID-19. Discussed treatment options including Paxlovid however he would prefer not to have any treatment at this time and I think this is reasonable. Recommended ibuprofen for fever or bodyaches. Advised to follow-up with his primary care physician as needed. Clinically he looks well. Lab Data Attestation: I reviewed the patient's lab results. ABG Data ABG results: ABG 08/26/23 21:17 VBG Carboxyhemoglobin 0.8 Discharge Plan Triage Chief Complaint: Poisoning ED Provider: Ramon Barbosa Dx/Rx/DC Orders Clinical Impression: COVID-19 Instructions: Caring for Someone Who Has COVID-19 Prescriptions: No Action ramipril 5 mg capsule 5 mg PO DAILY Qty: 30 0RF benzonatate 200 mg capsule 200 mg PO Primary Care Provider: Phil Camejo Referrals: Phil Camejo MD [Primary Care Provider] - 5-7 Days Disposition Disposition: Home, Self Care Discharge Date/Time: 08/26/23 21:58
[2023-08-26 21:20] LABS: Carboxyhemoglobin Order 0.8
[2023-08-26 21:21] LABS: Carboxyhemoglobin Frac (CO) 0.8 % (0.0-1.5)
[2023-08-26 21:57] VITALS: BP 128/77; PULSE 61; RESP 15; O2SAT 98
== END 2023-08-26 21:58 | disposition home or self-care (01) ==
PROVIDERS: Emergency Provider Emergency Medicine; PCP Family Medicine; Visit Provider Emergency Medicine
DX: U07.1 COVID-19 (principal); E78.00 Pure hypercholesterolemia, unspecified; I25.10 Atherosclerotic heart disease of native coronary artery without angina pectoris; I25.2 Old myocardial infarction; I5A Non-ischemic myocardial injury (non-traumatic); Z98.52 Vasectomy status
CPT/HCPCS: 82375; 87428; 99284

== ENCOUNTER → 2024-09-04 | Outpatient (CLI) | payer OTHER, SELFPAY ==
[2024-09-04 10:26] LABS: Bacteria 0 SEEN /hpf (None Seen); Mucous, Urine 0 SEEN /hpf (<or=2+); Squamous Epithelial Cells - UA 0 SEEN /hpf (0-5); White Blood Cells 0 SEEN /hpf (0-5)
[2024-09-04 11:48] LABS: Color, Urine Yellow (Yellow); Glucose, Dipstick Normal (Normal); Ketone-Dipstick Negative (Negative); Leukocyte Esterase-Dipstick Negative /ul (Negative); Nitrite-Dipstick Negative (Negative); Occult Blood-Urine 25 /ul (Negative); Protein-Dipstick Negative (Negative); Urine Bilirubin Dipstick Negative (Negative); Urine Clarity Clear (Clear); Urine Urobilinogen Normal (Normal); Urine pH 6.5 (5.0 - 8.0)
[2024-09-04 11:55] LABS: Red Blood Cells-Urine 0-5 SEEN /hpf (0-5)
== END | disposition home or self-care (01) ==
LOC: MFPLAB 10:23
PROVIDERS: PCP Family Medicine; Referring Provider Family Medicine; Visit Provider Family Medicine
DX: R39.9 Unspecified symptoms and signs involving the genitourinary system (principal)
CPT/HCPCS: 81001; 87086

== ENCOUNTER → 2025-08-29 | Outpatient (CLI) | payer OTHER, SELFPAY ==
[2025-08-29 18:25] LABS: PSA,Total- Diagnostic 0.62 ng/mL (0.00-4.00)
== END | disposition home or self-care (01) ==
LOC: MTLAB 15:56
PROVIDERS: PCP Family Medicine
DX: N40.1 Benign prostatic hyperplasia with lower urinary tract symptoms (principal)
CPT/HCPCS: 36415; 84153